=== PATIENT | female | born 1960 | race Native Hawaiian/Other Pacific Islander ===

== ENCOUNTER 2018-01-29 15:55 | Emergency (ER) | payer BC, OTHER ==
[~2018-01-29] VITALS: Ht 149.9 cm; Wt 50.0 kg
[2018-01-29 16:06] VITALS: BP 139/73; PULSE 97; RESP 20; TEMP 99.5; O2SAT 100
--- NOTE | 2018-01-29 17:26 | PD ---
HPI Chief Complaint: Skin Problem Time Seen by Provider: 17:17 Travel History International Travel<30 days: No Contact w/Intl Traveler<30days: No Traveled to known affect area: No History of Present Illness HPI Patient comes to the emergency department complaining of right breast pain, erythematous, and tenderness ongoing for 3 days. Patient reports temperature at home 100.3 and intermittent chills. Patient reports taking Aleve for this to help some. Denies any weight loss, nausea, vomiting, chest pain, shortness of breath, loss change in bowel or bladder. Patient denies anything like this in the past. Denies any known injury. Touching makes pain worse. Describes pain as throbbing-like in nature without radiation. Severity mild. PFSH Past Medical History Cardiovascular Problems: Yes High Cholesterol: Yes Diabetes: Yes Endocrine: Yes Genitourinary: No Immune Disorder: No Musculoskeletal: Yes Neurologic: Yes Reproductive: No Respiratory: No Past Surgical History Gynecologic Surgery: Yes (TUBAL LIGATION 04/1988) Social History Alcohol Use: No Tobacco Use: No Substance Use: No Allergies-Medications (Allergen,Severity, Reaction): Coded Allergies: No Known Allergies (Verified Allergy, Unknown, 09/12/06) Reported Meds & Prescriptions Reported Meds & Active Scripts Active Keflex (Cephalexin) 500 Mg Cap 500 Mg PO Q8H Bactrim DS (Sulfamethoxazole-Trimethoprim) 800-160 Mg Tab 1 Tab PO BID Review of Systems Except as stated in HPI: all other systems reviewed are Neg Physical Exam Narrative GENERAL: Well-developed, well nourished, in no acute distress, and non-ill appearing. SKIN: Focused skin assessment warm and dry. No consent was obtained. Right breast was noted to have some erythematous over the medial aspect that is tender to palpation. There is no induration or fluctuation. No nipple discharge or retraction. HEAD: Atraumatic. Normocephalic. EYES: Pupils equal and round. EOMI. No scleral icterus. No injection or drainage. ENT: No nasal bleeding or discharge. Mucous membranes pink and moist. NECK: Trachea midline. Supple. No nuclear rigidity. RESPIRATORY: No accessory muscle use. No respiratory distress. MUSCULOSKELETAL: No obvious deformities. No clubbing. No cyanosis. No edema. Full range of motion. NEUROLOGICAL: Awake and alert. No obvious cranial nerve deficits. Motor grossly within normal limits. Normal speech. PSYCHIATRIC: Appropriate mood and affect; insight and judgment normal. Data Data Last Documented VS Vital Signs Date Time Temp Pulse Resp B/P (MAP) Pulse Ox O2 Delivery O2 Flow Rate FiO2 01/29/18 16:06 99.5 97 20 139/73 (95) 100 Orders Orders Complete Blood Count With Diff (01/29/18 16:08) Comprehensive Metabolic Panel (01/29/18 16:08) Prothrombin Time / Inr (Pt) (01/29/18 16:08) Act Partial Throm Time (Ptt) (01/29/18 16:08) Lactic Acid Sepsis Protocol (01/29/18 16:08) Iv Access Insert/Monitor (01/29/18 17:23) Ecg Monitoring (01/29/18 17:23) Oximetry (01/29/18 17:23) Sodium Chloride 0.9% Flush (Ns Flush) (01/29/18 17:30) Al-Mag Hy-Si 40-40-4 Mg/Ml Liq (Mag-Al P (01/29/18 18:45) Lidocaine 2% Viscous (Xylocaine 2% Visco (01/29/18 18:45) Clindamycin 600 Mg/Ns Premix (Cleocin 60 (01/29/18 18:45) Ed Discharge Order (01/29/18 18:51) Labs Laboratory Tests Test 01/29/18 18:01 White Blood Count 14.3 TH/MM3 Red Blood Count 4.18 MIL/MM3 Hemoglobin 10.2 GM/DL Hematocrit 31.1 % Mean Corpuscular Volume 74.5 FL Mean Corpuscular Hemoglobin 24.5 PG Mean Corpuscular Hemoglobin Concent 32.8 % Red Cell Distribution Width 13.3 % Platelet Count 462 TH/MM3 Mean Platelet Volume 7.4 FL Neutrophils (%) (Auto) 76.5 % Lymphocytes (%) (Auto) 14.8 % Monocytes (%) (Auto) 7.7 % Eosinophils (%) (Auto) 0.7 % Basophils (%) (Auto) 0.3 % Neutrophils # (Auto) 10.9 TH/MM3 Lymphocytes # (Auto) 2.1 TH/MM3 Monocytes # (Auto) 1.1 TH/MM3 Eosinophils # (Auto) 0.1 TH/MM3 Basophils # (Auto) 0.0 TH/MM3 CBC Comment DIFF FINAL Differential Comment Prothrombin Time 10.0 SEC Prothromb Time International Ratio 1.0 RATIO Activated Partial Thromboplast Time 30.6 SEC Blood Urea Nitrogen 11 MG/DL Creatinine 0.82 MG/DL Random Glucose 84 MG/DL Total Protein 8.0 GM/DL Albumin 2.5 GM/DL Calcium Level 8.8 MG/DL Alkaline Phosphatase 190 U/L Aspartate Amino Transf (AST/SGOT) 42 U/L Alanine Aminotransferase (ALT/SGPT) 45 U/L Total Bilirubin 0.7 MG/DL Sodium Level 134 MEQ/L Potassium Level 3.7 MEQ/L Chloride Level 98 MEQ/L Carbon Dioxide Level 25.6 MEQ/L Anion Gap 10 MEQ/L Estimat Glomerular Filtration Rate 72 ML/MIN Lactic Acid Level 0.8 mmol/L MDM Medical Decision Making Medical Screen Exam Complete: Yes Emergency Medical Condition: Yes Differential Diagnosis Abscess, cellulitis, mastoiditis, cancer Narrative Course The patient has cellulitis. There is no evidence of necrotizing fasciitis at this time, pain is proportional and no crepitus is noted. There is no evidence of abscess as well at this time. The area of cellulitis was outlined by RN. The patient will be discharged on antibiotics. The patient was given signs and symptoms warnings for worsening infection, such as spreading of redness, increasing pain, and/or swelling, associated heat, or fever and instructed to return immediately if these signs or symptoms worsen. The patient is to follow up with physician in 2 days for recheck or return here in 2 days for recheck if unable to establish outpatient follow up. Sooner if worsens or as needed. The patient agrees with plan. Patient in no obvious distress upon re-evaluation. All pertinent laboratory result(s) discussed with patient. Patient was asked if they wanted to speak to my attending, which the patient did not wish to do at this time. Discussed patient with Dr. Vargas prior discharge, who is in agreement with plan of care and disposition. Any questions/concerns in reference to patient diagnosis/ condition discussed and clarified prior to patient's discharge. Reinforced sheer importance of close follow up with patient's primary physician or primary care clinic. Instructed patient to return to ED immediately, if symptoms return/ worsen. Patient showed understanding of above instructions. Further instructions and recommendations were detailed in discharge paperwork. Patient ambulated without difficulty out of ED at discharge. Diagnosis Primary Impression: Cellulitis of right breast Additional Impression: Microcytic anemia Patient Instructions: Anemia (DC), Cellulitis (ED), General Instructions Additional Instructions: Follow-up with your primary care physician or return here in 2 days for recheck. Follow-up with primary care doctor regarding anemia noted here today. Take all medication as prescribed. Use [id number] Tylenol or ibuprofen as needed for pain and/or fevers. Follow instructions on the packaging. Return to the emergency department sooner if symptoms get worse. Med/Other Pt SpecificInfo: Prescription(s) given Scripts Cephalexin (Keflex) 500 Mg Cap 500 MG PO Q8H for Infection, #30 CAP 0 Refills Prov: Boom Vargas MD 01/29/18 Sulfamethoxazole-Trimethoprim (Bactrim DS) 800-160 Mg Tab 1 TAB PO BID for Infection, #20 TAB 0 Refills Prov: Boom Vargas MD 01/29/18 Disposition: 01 DISCHARGE HOME Condition: Stable Saeid Cruz Jan 29, 2018 17:26
[2018-01-29] MEDS ORDERED: SODIUM CHLORIDE 0.9% FLUSH 10 ML FLUSH IV FLUSH PRN (17:30)
[2018-01-29 18:22] LABS: AUTOMATED NEUTROPHIL # 10.9 TH/MM3 (1.8-7.7); BASOPHIL % 0.3 % (0.0-2.0); EOSINOPHIL # 0.1 TH/MM3 (0-0.4); EOSINOPHIL % 0.7 % (0.0-4.0); HEMATOCRIT 31.1 % (35.0-46.0); HEMOGLOBIN 10.2 GM/DL (11.6-15.3); LYMPH % 14.8 % (9.0-44.0); LYMPHOCYTE # 2.1 TH/MM3 (1.0-4.8); MEAN CELL VOLUME 74.5 FL (80.0-100.0); MEAN CORPUSCULAR HEMOGLOBIN 24.5 PG (27.0-34.0); MEAN CORPUSCULAR HGB CONC 32.8 % (32.0-36.0); MEAN PLATELET VOLUME 7.4 FL (7.0-11.0); MONO % 7.7 % (0.0-8.0); MONOCYTE # 1.1 TH/MM3 (0-0.9); NEUT % 76.5 % (16.0-70.0); PLATELET COUNT 462 TH/MM3 (150-450); RED BLOOD COUNT 4.18 MIL/MM3 (4.00-5.30); RED CELL DISTRIBUTION WIDTH 13.3 % (11.6-17.2); WHITE BLOOD COUNT 14.3 TH/MM3 (4.0-11.0)
[2018-01-29 18:40] LABS: ALBUMIN 2.5 GM/DL (3.4-5.0); AST (GOT) 42 U/L (15-37); BICARBONATE 25.6 MEQ/L (21.0-32.0); BLOOD UREA NITROGEN 11 MG/DL (7-18); CALCIUM 8.8 MG/DL (8.5-10.1); CHLORIDE 98 MEQ/L (98-107); CREATININE 0.82 MG/DL (0.50-1.00); GLOMERULAR FILTRATION RATE 72 ML/MIN (>89); GLUCOSE,RANDOM 84 MG/DL (74-106); SODIUM (NA) 134 MEQ/L (136-145)
[2018-01-29 18:43] LABS: ALKALINE PHOSPHATASE 190 U/L (45-117); ALT (GPT) 45 U/L (10-53); TOTAL BILIRUBIN ADULT 0.7 MG/DL (0.2-1.0)
[2018-01-29] MEDS ORDERED: CLINDAMYCIN 600 MG/NS PREMIX 50 ML IV ONE (18:45)
[2018-01-29] MEDS ORDERED: ALUMINUM/MAGNESIUM/SIMETH 30 ML CUP PO ONE (18:45)
[2018-01-29] MEDS ORDERED: LIDOCAINE VISCOUS 2% SOLN 15 ML UDC PO ONE (18:45)
[2018-01-29] MEDS ORDERED: CEPH-460 PO (18:47)
[2018-01-29] MEDS ORDERED: BACT800T5 PO (18:47)
== END 2018-01-29 20:35 | disposition home or self-care (01) ==
LOC: NEPC 15:55
DX: N61.0 Mastitis without abscess (principal); D50.9 Iron deficiency anemia, unspecified
CPT/HCPCS: 80053; 83605; 85025; 85610; 85730; 96374

== ENCOUNTER 2018-02-01 11:23 | Emergency (ER) | payer OTHER ==
[~2018-02-01 11:23] MED LIST: BACT800T5 PO; CEPH-460 PO
[2018-02-01 11:28] VITALS: BP 128/58; PULSE 82; RESP 16; TEMP 98.5; O2SAT 100
--- NOTE | 2018-02-01 11:38 | PD ---
HPI Chief Complaint: Wound/Suture/Staple Re-Check Time Seen by Provider: 11:31 Travel History International Travel<30 days: No Contact w/Intl Traveler<30days: No Traveled to known affect area: No History of Present Illness HPI 57-year-old female presents to the emergency department for recheck of right breast cellulitis. Patient was seen in the emergency department 3 days ago. She was discharged prescription for Bactrim and Keflex for cellulitis of the right breast. Patient was instructed to return for recheck. She states the pain is completely gone. She denies any further fevers. She does state that the redness is still present, but is improving. She denies any other symptoms or complaints at this time. Mild severity. PFSH Past Medical History Cardiovascular Problems: Yes High Cholesterol: Yes Diabetes: Yes Endocrine: Yes Gastrointestinal Disorders: No Genitourinary: No Immune Disorder: No Musculoskeletal: Yes Neurologic: Yes Reproductive: No Respiratory: No Past Surgical History Gynecologic Surgery: Yes (TUBAL LIGATION 04/1988) Other Surgery: Yes Social History Alcohol Use: No Tobacco Use: No Substance Use: No Allergies-Medications (Allergen,Severity, Reaction): Coded Allergies: No Known Allergies (Verified Allergy, Unknown, 09/12/06) Reported Meds & Prescriptions Reported Meds & Active Scripts Active Keflex (Cephalexin) 500 Mg Cap 500 Mg PO Q8H Bactrim DS (Sulfamethoxazole-Trimethoprim) 800-160 Mg Tab 1 Tab PO BID Review of Systems Except as stated in HPI: all other systems reviewed are Neg Physical Exam Narrative GENERAL: Well-nourished, well-developed female patient, afebrile. SKIN: Focused skin assessment warm/dry. Patient has outlined of skin marker to the right breast. The erythema has subsided around the edges of the skin marker. There is still some erythema around the areola. No fluctuance or induration. No evidence of abscess. HEAD: Normocephalic. Atraumatic. EYES: No scleral icterus. No injection or drainage. NECK: Supple, trachea midline. No JVD or lymphadenopathy. CARDIOVASCULAR: Regular rate and rhythm without murmurs, gallops, or rubs. RESPIRATORY: Breath sounds equal bilaterally. No accessory muscle use. Lung sounds are clear to auscultation. MUSCULOSKELETAL: No cyanosis, or edema. Data Data Last Documented VS Vital Signs Date Time Temp Pulse Resp B/P (MAP) Pulse Ox O2 Delivery O2 Flow Rate FiO2 02/01/18 11:28 98.5 82 16 128/58 (81) 100 MDM Medical Decision Making Medical Screen Exam Complete: Yes Emergency Medical Condition: Yes Medical Record Reviewed: Yes Differential Diagnosis Cellulitis versus abscess versus failed outpatient treatment Narrative Course 57-year-old female presents to the emergency department for evaluation of right breast cellulitis. She states symptoms are improving. Physical exam is reassuring. Patient is continue antibiotics as prescribed until gone. She is follow with her primary care physician. She is instructed to return here for any worsening of symptoms. She verbalizes agreement and understanding. The patient was discharged in stable condition with instructions, including return instructions and follow up instructions. Diagnosis Primary Impression: Cellulitis of right breast Referrals: Primary Care Physician call for appointment Patient Instructions: Cellulitis (ED), General Instructions Additional Instructions: Continue antibiotics as prescribed until gone. Follow-up with a primary care physician. Return to the emergency department for any acute worsening of symptoms. Med/Other Pt SpecificInfo: No Change to Meds Disposition: 01 DISCHARGE HOME Condition: Stable Angi Ley February 01, 2018 11:38
== END 2018-02-01 11:44 | disposition home or self-care (01) ==
LOC: NEPK 11:23
DX: N61.0 Mastitis without abscess (principal)
CPT/HCPCS: 99281